=== PATIENT | female | born 1965 | race Caucasian/White ===

== ENCOUNTER 2020-07-17 16:21 | Emergency (ER) | payer OTHER ==
[~2020-07-17 16:21] MED LIST: KLONOPIN TAB 00.5 MG PO; PERCOCET 5-3251 EACH PO
[2020-07-17] MEDS ORDERED: HYDROCODON-ACE1 EAC4 PO (20:11)
== END 2020-07-17 20:50 | disposition home or self-care (01) ==
LOC: ER1 16:21
DX: S92.322A Displaced fracture of second metatarsal bone, left foot, initial encounter for closed fracture (principal); F17.210 Nicotine dependence, cigarettes, uncomplicated; W19.XXXA Unspecified fall, initial encounter; Y92.009 Unspecified place in unspecified non-institutional (private) residence as the place of occurrence of the external cause
CPT/HCPCS: 73630; 99283

== ENCOUNTER → 2020-08-15 | Outpatient (CLI) | payer OTHER ==
[~2020-08-15] MED LIST changes: +HYDROCODON-ACE1 EAC4 PO
== END ==
LOC: KOH-I 14:49
DX: S92.322A Displaced fracture of second metatarsal bone, left foot, initial encounter for closed fracture (principal); S90.32XA Contusion of left foot, initial encounter; M65.872 Other synovitis and tenosynovitis, left ankle and foot; X50.1XXA Overexertion from prolonged static or awkward postures, initial encounter
CPT/HCPCS: 73718